=== PATIENT | female | born 1995 | race Caucasian/White ===

== ENCOUNTER → 2024-02-15 03:27 | Outpatient (CLI) | payer MEDICAID, SELFPAY ==
--- NOTE | 2024-02-15 07:40 | DI.US_ITS ---
Exam(s) US PELVIS TRANSVAGINAL EXAM: US PELVIS TRANSVAGINAL CLINICAL HISTORY: Anatomy,breakthrough bleeding,severe cervical dysplasia,z97.5,n92.1,d06.9 TECHNIQUE: Ultrasound of the pelvis was performed both transabdominal and transvaginal. COMPARISON: No exams were available for comparison FINDINGS: UTERUS: Nongravid and anteverted Measures cm length x cm AP x cm wide. There are no uterine fibroids. Endometrial thickness measures 7 mm. The endometrium in the region of the fundus appears somewhat he terogeneous and there are few small echogenic foci in the anterior aspect of the endometrial lining a t this level. Possible polyps. There is no fluid in the endometrial canal. CERVIX: There are no obvious nabothian cysts. RIGHT OVARY: Measures 3.7 x 1.9 x 3.2 cm No significant cysts nor masses evident in the right ovary. LEFT OVARY: Measures 4.3 x 1.8 x 2.8 cm No significant cysts nor masses evident in the left ovary. CUL-DE-SAC: There is mild-moderate amount of free fluid in the cul-de-sac. IMPRESSION: 1. There are a few small echogenic foci within the anterior endometrial lining near the fundus level, possibly polyps. Endometrial thickness is age-appropriate and there is no fluid in the endometrial cavity. 2. Both ovaries appear age-appropriate 3. Small-moderate amount of free fluid noted. DATA REPOSITORY:
== END ==
PROVIDERS: PCP Family Medicine; Visit Provider Obstetrics & Gynecology
DX: D06.7 Carcinoma in situ of other parts of cervix (principal); N92.1 Excessive and frequent menstruation with irregular cycle; N85.8 Other specified noninflammatory disorders of uterus
CPT/HCPCS: 76830; 76856

== ENCOUNTER 2024-02-22 04:36 | Outpatient (CLI) | payer MEDICAID, SELFPAY ==
[2024-02-22 17:03] LABS: HCT 35.5 % (36.0-46.0); HGB 11.9 g/dL (11.2-15.7); MCH 31.2 pg (27.0-33.0); MCHC 33.5 % (32.0-36.0); MCV 93 fL (80-95); MPV 9.4 fL (8.0-11.0); Platelet Count 207 10^3/uL (130-400); RBC 3.82 10^6/uL (3.93-5.22); RDW 11.8 % (11.7-14.6); RDW-SD 39.7 fL; WBC 4.88 10^3/uL (4.4-10.8)
== END 2024-02-22 04:37 | disposition home or self-care (01) ==
LOC: LBO 04:36
PROVIDERS: PCP Family Medicine; Visit Provider Obstetrics & Gynecology
DX: Z01.818 Encounter for other preprocedural examination (principal)
CPT/HCPCS: 36415; 85027; 86850; 86900; 86901

== ENCOUNTER 2024-02-23 08:57 | Day surgery (SDC) | payer MEDICAID, SELFPAY ==
[2024-02-23] VITALS (8 sets, daily range): BP systolic 96–111; BP diastolic 47–64; PULSE 64–72; RESP 14–16; TEMP 36.2–36.9; O2SAT 98–100; BMI 25.4
[2024-02-23] MEDS: Lactated Ringers 1,000 ML 125 ML IV (09:44)
--- NOTE | 2024-02-23 09:49 | W.ANESPRE ---
General Info Date of Service Date Performed: 02/23/24 Height: 5 ft 8 in Weight: 76.1 kg Body Mass Index (BMI): 25.4 Surgical Procedure: Operation Date: 02/23/24 09:40 Proposed Procedure Side Surgeon p Leep Cone Biopsy, Nexplanon Removal Coco Villanueva DO s Insertion of IUD, Mirchetan Villanueva DO Meds Allergies and Home Medications Allergies Allergy/AdvReac Type Severity Reaction Status Date / Time No Known Allergies Allergy Verified 02/22/24 12:06 Home Medication Medication Instructions Recorded etonogestrel 68 mg subdermal 1 implant subdermal ONCE 02/10/24 implant (Nexplanon) venlafaxine 150 mg 150 mg PO DAILY 02/10/24 capsule,extended release 24 hr venlafaxine 75 mg capsule,extended 75 mg PO DAILY 02/10/24 release 24 hr Current Visit Medications: Current Medications Generic Name Dose Route Start Last Admin Trade Name Freq PRN Reason Stop Dose Admin Ringer's Solution 1,000 mls @ 125 mls/hr 02/23/24 06:00 02/23/24 09:44 IV 03/23/24 23:59 125 mls/hr INFUSION KAMERON Administration IV Miscellaneous Supplies 1 each 02/23/24 06:00 Iv Access IV 03/23/24 23:59 DIRECTED KAMERON Sodium Chloride 0 ml 02/23/24 06:00 Normal Saline Flush 10 Ml Syr IV 03/23/24 23:59 PRN PRN Sodium Chloride 0 ml 02/23/24 06:00 Normal Saline 10 Ml Vial IJ 03/23/24 23:59 DIRECTED PRN Sterile Water 0 ml 02/23/24 06:00 Water,Injection,Sterile 10 Ml Vial IJ 03/23/24 23:59 DIRECTED PRN PFSH Active Problems Active Problems: Problem Status Onset Code Breakthrough bleeding on Nexplanon N92.1, Z97.5 Severe cervical dysplasia D06.9 Anemia D64.9 Anxiety F41.9 Depression F32.A Medical History Medical History Comments:: Pt. has new lip piercing she will remove surgical steel ring and place plastic in place for procedure Surgical History Surgical History Hx of cholecystectomy Hx of bariatric surgery Tobacco Smoking/Tobacco Use Status: Former Tobacco Use Alcohol Alcohol Intake: never Substance Use Substance use: Rarely Substance use type: marijuana Prental History History 3 Para 2 Hx # Term Pregnancies 2 Multiple births Hx # Pregnancies Ectopic pregnancies AB induced Hx Number of Living Children 2 AB spontaneous Vital Signs and Lab Results Vital Signs Most Recent Vital Signs in EMR: Most Recent Vital Signs Temp Pulse Resp BP Pulse Ox 36.4 C L 72 16 98/60 L 100 02/23/24 09:24 02/23/24 09:24 02/23/24 09:24 02/23/24 09:24 02/23/24 09:24 Point of Care Results Point of Care Results: POC- Test(urine) Negative 02/23/24 09:48 Lab Results Blood Type / Crossmatch: Patient ABO/Rh O Negative 02/22/24 Antibody Screen NEGATIVE 02/22/24 Complete Blood Count: White Blood Count 4.88 10^3/uL (4.4-10.8) 02/22/24 16:42 Red Blood Count 3.82 10^6/uL (3.93-5.22) L 02/22/24 16:42 Hemoglobin 11.9 g/dL (11.2-15.7) 02/22/24 16:42 Hematocrit 35.5 % (36.0-46.0) L 02/22/24 16:42 Platelet Count 207 10^3/uL (130-400) 02/22/24 16:42 Complete Metabolic Panel: No Data to Display Liver Function Panel: No Data to Display Coagulation Panel: No Data to Display Cardiac Panel: No Data to Display Arterial Blood Gas: No Data to Display Venous Blood Gas: No Data to Display Pancreas Panel: No Data to Display Thyroid Panel: No Data to Display Infectious Disease: No Data to Display Blood Cultures: No Data to Display Toxicology Panel: No Data to Display Panel: No Data to Display Anesthesia Assessment and Plan Anesthesia History Personal History: No History of Anesthesia Complications Family History: No Family History of Anesthesia Complications Exercise Tolerance Exercise Tolerance: Metabolic Equivalents>4 Pertinent Negatives Pertinent Negatives: No Symptoms of GERD, No Major Cardiovascular Symptoms or Complaints, No Major Pulmonary Symptoms or Complaints and No History of CVA/TIA Cardiac & Pulmonary Exam Cardiac Exam: Normal S1/S2 Heart Sounds Pulmonary Exam: Clear Bilateral Breath Sounds Implantable Cardiac Device Does patient have a Pacemaker or an ICD?: No Airway Exam Known Difficult Airway: No Mallampati Class: 1 Mouth Opening: Normal (> 3cm) Thyromental Distance: Greater than 3 cm Neck Range of Motion: Full ROM Neck Circumference: Normal Teeth Condition: Normal Dentition ASA Classification ASA Score: ASA 2 Emergency Case?: No NPO Status NPO Status: NPO Clears >2 hours, Solids >8 hours Status Status: Negative HCG Anesthesia Plan Resuscitation Status: Full Code Anesthesia Technique: General Anesthesia Airway Planned: LMA Monitors Used: Standard Monitors
[2024-02-23] MEDS: Lidocaine 1% Pres-Free 30 ML VIAL (13:10)
--- NOTE | 2024-02-23 13:15 | CER_PTH ---
PATIENT: Courtney Villanueva LOC: [facility] U#:[id number] AGE/SX: 28/F ROOM: RE02/23/[address]: Coco Villanueva DO : 1995 BED: DIS: 02/23/2024 SPEC #: [id number] RECD: 02/23/24 13:34 STATUS: TERESE REQ #: [id number] TENA: 02/23/24 13:[address]: Coco Villanueva DEPT: Surgical Specimen RECD BY: Funmilayo Blanco ENTERED: 02/23/24 13:36 SP TYPE: CER OTHR DR: Susan Hernández Tissues: 1 - CERVICAL LEEP/LOOP Procedures: GROSS AND MICRO LEVEL 5 Comments: [id number]
--- NOTE | 2024-02-23 13:33 | W.PM.OP ---
Date of service: 02/23/24 Time of Service: 13:33 Operative Note Operative Note DATE OF PROCEDURE: 02/23/24 PRE-OP DIAGNOSIS: Cervical dysplasia, contraceptive management PROCEDURE: Loop electrocautery excisional procedure, placement of a Mirena IUD, removal of Nexplanon. SURGEON: Coco Villanueva ANESTHESIA TYPE: General LMA/ETT Refer to Anesthesia Record ESTIMATED BLOOD LOSS: 5 PATHOLOGY: other (Cervical conization) COMPLICATIONS: None Patient was transported to: same day Patient's condition: stable Implants: Mirena IUD Lot [id number] Expiration 11/15/2025 Indications: Severe cervical dysplasia, desires removal of the Nexplanon. Contraceptive management with an IUD Findings: Normal-appearing cervix. Nexplanon device in the left upper extremity, removed. Procedure Description: After full informed consent was obtained, the patient was taken the operating suite with an IV running. She is placed in dorsal supine position and general anesthesia administered via the anesthesia team. She was then placed in the modified dorsolithotomy position and prepped and draped in the usual sterile fashion. Pneumatic compression stockings were placed for DVT prophylaxis. No antibiotic prophylaxis was warranted. Negative status verified. Straight cath used to drain her bladder for approximately 300 cc of clear yellow urine. Exam under anesthesia revealed a uterus that was midline and mobile. At this point a speculum was inserted into the vaginal vault and a large loop was used to create the cervical conization with settings of 60/60?blend. The base of the conization was noted to be hemostatic. The entirety of the transformation zone was removed. At this point the Mirena IUD system was inserted through the cervical os, to the fundus, and deployed. Strings cut to 3 cm. Base of the conization was then cauterized with the Bovie cautery and Monsel solution placed. At this point with appropriate hemostasis, speculum was removed. Patient was returned to the dorsal supine position. Attention was then turned to the left upper extremity for removal of her Nexplanon. The site was cleansed with alcohol and infiltrated with 1% lidocaine. A small incision was made at the distal end of the Nexplanon device and it was elevated through the incision and removed in toto. Dermabond, OpSite, and a tight wrap were placed. Patient tolerated procedure without difficulty. She was taken to the same-day surgical area in stable condition. EBL: 5 mL Fluids: Crystalloid per anesthesia Complications: None apparent Pathology: Cervical conization.
--- NOTE | 2024-02-23 13:44 | W.ANESPOSTOP ---
Postoperative Evaluation Date, Time and Location Date Performed: 02/23/24 Time Performed: 13:44 Patient Location: PACU Vital Signs Most Recent Imported Vital Signs: Most Recent Vital Signs Temp Pulse Resp BP Pulse Ox 36.5 C 67 16 96/47 L 100 02/23/24 13:30 02/23/24 13:30 02/23/24 13:30 02/23/24 13:30 02/23/24 13:30 Pain Score Most Recent Pain Score: Most Recent Pain Score Pain Level 0 02/23/24 13:30 Assessment Mental Status: Arousable with meaningful communication Airway and Respiratory Function: Patent airway with normal (patient baseline) respiratory exam Cardiovascular Function: Hemodynamically Stable Hydration Status: Adequately Hydrated Nausea & Vomiting: No Nausea or Vomiting Pain: Pain is tolerable per patient Peripheral Nerve Block: Patient did not receive a nerve block
[2024-02-23] MEDS: Acetaminophen 500 MG TAB 1000 MG PO (14:41)
== END 2024-02-23 15:00 | disposition home or self-care (01) ==
PROVIDERS: PCP Family Medicine; Visit Provider Obstetrics & Gynecology
PROC: 0UBC7ZZ Excision of Cervix, Via Natural or Artificial Opening (ICD-10-PCS; CPT 57522; principal; 2024-02-23 09:30)
PROC: (CPT 57522; 2024-02-23 09:30)
DX: D06.7 Carcinoma in situ of other parts of cervix (principal); Z30.430 Encounter for insertion of intrauterine contraceptive device; Z30.8 Encounter for other contraceptive management; D64.9 Anemia, unspecified; Z98.84 Bariatric surgery status; F41.9 Anxiety disorder, unspecified; F32.A Depression, unspecified
CPT/HCPCS: 57522; 11982; 58300; 81025; 88307; J1100; J1885; J2371; J2405; J2704